=== PATIENT | male | born 1955 | race Caucasian/White ===

== ENCOUNTER 2017-08-10 11:21 | Observation (INO) | payer BC ==
[2017-08-10] MEDS ORDERED: Sodium Chloride 0.9% 10 ML FLUSH Syringe IV PRN (12:48)
[2017-08-10] MEDS ORDERED: TYLENOL 325 MG PO PRN (12:50)
[2017-08-10] MEDS ORDERED: NON-FORMULARY ITEM (Dulaglutide [Trulicity] 1.5 ml) SQ SCH (13:30)
[2017-08-10 14:09] LABS: ANION GAP 14.8 MEQ/L (5-15); BILIRUBIN,TOTAL 0.3 mg/dL (0.2-1.0); Calcium 8.7 mg/dL (8.5-10.1); Carbon Dioxide 22.8 mEq/L (21-32); Creatinine 1 1.53 mg/dl (0.55-1.30); Potassium 3.9 mEq/L (3.5-5.1)
--- NOTE | 2017-08-10 14:30 | XRAY ---
Indication: Status post left thoracentesis. Comparison: Taken earlier in the day. Portable chest obtained in expiration demonstrates marked clearing of left effusion with residual left base atelectasis and tiny effusion. No pneumothorax. Remaining heart and lungs unremarkable.
[2017-08-10] MEDS: Sodium Chloride 0.9% 10 ML FLUSH Syringe IV SCH ×2 (15:27→21:05)
[2017-08-10] MEDS ORDERED: INSULIN LISPRO 30 UNIT SQ SCH (16:30)
[2017-08-10] MEDS ORDERED: APRESOLINE 20 MG/ML INJ IV PRN (16:35)
[2017-08-10] MEDS: NovoLOG Insulin SQ SCH (17:03)
[2017-08-10] MEDS: Toprol Xl 50 MG PO SCH (21:02)
[2017-08-10] MEDS: ZOCOR 20MG PO SCH (21:03)
[2017-08-10] MEDS ORDERED: NON-FORMULARY ITEM (Atorvastatin Calcium 40 MG) PO SCH (22:00)
[2017-08-11 06:52] LABS: BF Color Pale Yellow
[2017-08-11 09:19] LABS: BF Mononuclear 100 %
[2017-08-11] MEDS: NovoLOG Insulin SQ SCH ×3 (09:28→17:06)
[2017-08-11] MEDS: Lantus Insulin SQ SCH (09:28)
[2017-08-11] MEDS: Toprol Xl 50 MG PO SCH ×2 (09:29→22:13)
[2017-08-11] MEDS: SYNTHROID 50 MCG PO SCH (09:29)
[2017-08-11] MEDS: LASIX 20 MG PO SCH (09:29)
--- NOTE | 2017-08-11 09:29 | XRAY ---
Indication: Follow-up effusion. Status post left thoracentesis one day earlier. Comparison: One day earlier. PA/lateral chest again demonstrates small residual left effusion with adjacent atelectasis. No pneumothorax. Remaining heart and right lung normal.
[2017-08-11] MEDS: NON-FORMULARY ITEM (Chlorthalidone [Chlorthalidone] 25 MG) PO SCH (09:30)
[2017-08-11] MEDS: NORVASC 5 MG PO SCH (09:30)
[2017-08-11] MEDS: Levofloxacin 500 MG Tablet PO SCH (09:31)
[2017-08-11] MEDS: Sodium Chloride 0.9% 10 ML FLUSH Syringe IV SCH ×3 (09:32→22:13)
[2017-08-11] MEDS ORDERED: NON-FORMULARY ITEM (Insulin Detemir [Levemir] 40 UNIT) SQ SCH (10:00)
[2017-08-11] MEDS ORDERED: NON-FORMULARY ITEM (Amlodipine Besylate 10 Mg [Norvasc 10 Mg] 10 MG) PO SCH (10:00)
--- NOTE | 2017-08-11 14:51 | HP ---
HISTORY OF PRESENT ILLNESS: A 61 year-old man who presented to the clinic on 08/10/2017. He complained of having a cough that would not go away stating that sometimes he would cough to the point that he felt like he was going to throw up. He has been taking Coricidin HBP since July 2017 after I had seen him for a viral upper respiratory tract infection on 07/14/2017. He reports that he sometimes coughs up white phlegm. He is not smoking. He quit smoking 30 years ago. His cough is worse at night and he reports that sometimes he has to sit up in a chair. He does not have any history of asthma and emphysema and does not use any inhalers at home. He also reports that sometimes the cough is worse with talking. The patient was sent over to the hospital for a STAT chest x-ray and CBC. The chest x-ray had revealed a large left pleural effusion. On his physical exam in the clinic I also noted that he had decreased breath sounds in the left lung field. The patient was called and was agreeable to direct admission. The radiologist was consulted for ultrasound guided thoracentesis. The patient does work at the [employer] but states he does not have much contact with the offenders as he is usually working outside. This a.m. the patient states that his breathing was much better. He still has cough productive of some white sputum but overall he is feeling better. Of note, the radiologist took off 2.1 liter of what he called transudative fluid from his chest. REVIEW OF SYSTEMS: No fever. He has had post-tussive emesis otherwise no vomiting, no diarrhea. The cough was worse with lying down and worse with talking. No abdominal pain. Trace lower extremity edema. No chest pain. PAST MEDICAL HISTORY: Diabetes mellitus type 2, hyperlipidemia, hypertension, history of edema. He had an echo in 2012 with ejection fraction of 60%. History of obstructive sleep apnea which he wears CPAP for at home. The patient always declined screening for colon cancer. PAST SURGICAL HISTORY: Orthopedic surgery for left leg fracture and orthopedic surgery for left wrist fracture. MEDICATIONS: Please see the home medication reconciliation list. ALLERGIES: NKDA. SOCIAL HISTORY: He used to smoke and quit around 1987. He smoked for approximately 15 years. No alcohol use. The patient lives alone. He works at the [employer] in [place]. FAMILY HISTORY: His father had heart disease and his mother had heart disease. His mother also had diabetes. PHYSICAL EXAMINATION: VITAL SIGNS: Temperature current 97.8F, temperature max 99.1F, heart rate 78 to 90, respiratory rate 18 to 20, blood pressure 138 to 184 over 73 to 85, weight 127.7 kg. Oxygen saturation 92 to 97% on room air currently 97% on room air. GENERAL: The patient is sitting up a pleasant talkative man in no acute distress. CVS: He has a regular rate and rhythm. No murmurs, gallops or rubs. CHEST: Decreased breath sounds at left base. Otherwise lungs are clear to auscultation. No crackles or wheezes. ABDOMEN: Soft, nontender, nondistended with normal bowel sounds. EXTREMITIES: +2 edema to the mid shins bilaterally. SKIN: Warm, dry and intact. LABORATORY DATA AND TESTS: Glucose 212, creatinine 1.5, BUN 25. BNP 254. White blood cell count 10.6 with 70% granulocytes, 18% lymphocytes, 8% monocytes. Chest x-ray on admission new large left lung consolidation occupying 75% of hemithorax. X-ray this a.m. small residual left effusion with adjacent atelectasis. No pneumothorax. Please see the radiologist report for full dictation on both x-rays. EKG sinus rhythm. He did have prolongation of his QRS. ASSESSMENT AND PLAN: 1) LEFT PLEURAL EFFUSION. Again 2.1 liters of fluid was removed. It was sent for protein, LDH, gram stain, culture, cytology, pH, glucose, cell count and TB culture. The LDH, cell count, pH, glucose and protein were back. The fluid does meet right criteria as the pleural LDH is greater than 0.67 times the upper limits of normal for the serum LDH so with exudative the rest of those studies are pending. I asked veneer manufacturer, Dr. Anthony Morrison, to see the patient as I am unsure of the exact etiology. I am also checking sputum culture, go ahead and start him on levofloxacin as his white blood cell count was mildly elevated although he has been afebrile. 2) DIABETES MELLITUS TYPE 2: His hemoglobin A1C was 6.7 on 06/09/2017. I continued his home doses of his insulin. 3) HYPERTENSION: I continued his home antihypertensive and added hydralazine as needed PRN. His blood pressure has always been hard to control. 4) DEEP VENOUS THROMBOSIS PROPHYLAXIS: Use SCD and ARNOLD hose.
--- NOTE | 2017-08-11 16:10 | XRAY ---
Indication: Pleural effusion. Status post left thoracentesis one day earlier. Multiple contiguous axial images obtained through the chest without contrast as ordered. Comparison: None There is moderate left effusion occupying approximately 33% of the left hemithorax with minimal left lower lobe compressive atelectasis. A few left lung calcified granulomas and minimal inferior lingular atelectasis/scarring. No pneumothorax. Right lung clear. Heart is not enlarged. No pericardial effusion. Aorta is normal in course and caliber. A few small mediastinal and distal paraesophageal noncalcified nodes. No pathologic mediastinal lymphadenopathy. Bony thorax intact with mild flowing osteophytes throughout the spine. Limited upper abdomen demonstrates 3 cm left adrenal benign adenoma. Impression: 1. Left effusion/atelectasis as detailed. 2. Incidental evidence for old granulomatous disease and left adrenal adenoma. CTDI 17.76
[2017-08-11] MEDS: ZOCOR 20MG PO SCH (22:13)
[2017-08-12 06:26] LABS: Hematocrit 37.2 % (42-50); Hemoglobin 11.6 gm/dl (12.5-18.0); Mean Cell Volume 84.9 fl (78-100); Mean Corpuscular Hgb Concent. 31.2 g/dl (32-36); Mean Platelet Volume 10.4 fl (6-9.5); Platelet Count 418 K/mm3 (150-450); Red Blood Count 4.38 M/mm3 (4.1-5.6); Red Cell Distribution Width 14.5 % (11.5-14.0); White Blood Count 9.1 K/mm3 (4.0-10.5)
[2017-08-12 06:44] LABS: Mean Corpuscular Hemoglobin 26.4 pg (26-32)
[2017-08-12] MEDS: Sodium Chloride 0.9% 10 ML FLUSH Syringe IV SCH (06:55)
[2017-08-12 07:15] LABS: ALKALINE PHOSPHATASE 66 U/L (46-116); ANION GAP 13.8 MEQ/L (5-15); BLOOD UREA NITROGEN 24 mg/dL (9-20); CHLORIDE 106 mEq/L (98-107); Calcium 8.8 mg/dL (8.5-10.1); EST GLOMERULAR FILTRATION RATE > 60 ML/MIN; Glucose 176 MG/DL (70-110); MAGNESIUM 1.9 mg/dL (1.8-2.4); NT PRO BNP 209 pg/ml (0-125); Potassium 4.2 mEq/L (3.5-5.1); SGOT/AST 20 U/L (15-37); SGPT/ALT 15 U/L (12-78); SODIUM 139 mEq/L (136-145); Total Protein 6.6 gm/dL (6.4-8.2)
[2017-08-12 07:18] VITALS: O2SAT 97
[2017-08-12] MEDS ORDERED: NovoLOG Insulin SQ SCH (08:14)
[2017-08-12] MEDS: NovoLOG Insulin SQ SCH (08:37)
[2017-08-12] MEDS: Lantus Insulin SQ SCH (08:37)
[2017-08-12] MEDS: LASIX 20 MG PO SCH (08:40)
[2017-08-12] MEDS: Levofloxacin 500 MG Tablet PO SCH (08:40)
[2017-08-12] MEDS: SYNTHROID 50 MCG PO SCH (08:40)
[2017-08-12] MEDS: NORVASC 5 MG PO SCH (08:40)
[2017-08-12] MEDS: Toprol Xl 50 MG PO SCH (08:40)
[2017-08-12] MEDS: MEDICATION INTERVENTION MC SCH ×2 (08:41→08:43)
[2017-08-12] MEDS: NON-FORMULARY ITEM (Chlorthalidone [Chlorthalidone] 25 MG) PO SCH (08:42)
--- NOTE | 2017-08-12 09:21 | PCM.NOTE ---
Date and Time: 08/12/17914 Subjective Assessment: Patient reports that he continues to have a cough especially when he talks but improved. He reports Dr. Morrison said he would check back with him today and that he might possibly clear him to be released on antibiotics. He reports his diet is different here as he is eating cooked food and not just grabbing what is available and agrees that this is probably why his blood glucose went low yesterday. I discussed that is why I cut back on his regular insulin with his meals from 30 units to 10 units and will most likely send him home on 20 units with his meals and see how he does with this at home. - Review of Systems Constitutional: No Symptoms Eyes: No Symptoms Ears, Nose, & Throat: No Symptoms Respiratory: Cough, Short Of Breath Cardiac: No Symptoms Abdominal/Gastrointestinal: No Symptoms Genitourinary Symptoms: No Symptoms Musculoskeletal: No Symptoms Skin: Other (mild swelling of his legs) Objective Exam General Appearance: no apparent distress, alert, other (smiling, talkative) Neurologic Exam: alert, cooperative, normal mood/affect Skin Exam: normal color, warm, dry Respiratory Exam: other (diminshed breath sounds on the left, normal on the right, cough with deep breaths) Cardiovascular Exam: regular rate/rhythm, normal heart sounds, No murmur, No friction rub, No gallop Extremity Exam: other (+1 edema to mid shins bilat, no c/c) OBJECTIVE DATA Vital Signs: Vital Signs - 24 hr Temp Pulse Resp BP Pulse Ox 08/12/17 07:17 97.6 F 80 20 155/78 97 08/12/17 04:25 98.3 F 74 22 176/85 95 08/12/17 00:00 98.3 F 76 22 156/70 95 08/11/17 20:00 97.8 F 87 22 169/78 96 08/11/17 19:45 75 20 96 08/11/17 16:31 97 08/11/17 15:22 97.9 F 90 22 148/74 96 08/11/17 12:31 97.8 F 84 22 138/68 97 Pain Assessment - Last Documented Pain Intensity 2 Pain Scale Used 0-10 Pain Scale Intake and Output: Intake & Output 08/10/17 08/11/17 08/12/17 08/13/17 06:59 06:59 06:59 06:59 Intake Total 980 2200 360 Output Total 1000 Balance 980 1200 360 Weight 127.7 kg Lab Results: Accuchecks Date 08/12/17 Date 08/11/17 Date 08/11/17 Date 08/11/17 Date 08/11/17 Time 07:00 Time 14:35 Time 15:58 Time 15:19 Time 11:30 Accucheck Value: 162 Accucheck Value: 215 Accucheck Value: 144 Accucheck Value: 56 Accucheck Value: 53 Accucheck Value: 214 Lab Results-Last 24 Hours 08/10/17 08/12/17 08/12/17 Range/Units 14:15 05:30 05:30 WBC 9.1 (4.0-10.5) K/mm3 RBC 4.38 (4.1-5.6) M/mm3 Hgb 11.6 L (12.5-18.0) gm/dl Hct 37.2 L (42-50) % MCV 84.9 (78-100) fl MCH 26.4 (26-32) pg MCHC 31.2 L (32-36) g/dl RDW 14.5 H (11.5-14.0) % Plt Count 418 (150-450) K/mm3 MPV 10.4 H (6-9.5) fl Sodium 139 (136-145) mEq/L Potassium 4.2 (3.5-5.1) mEq/L Chloride 106 (98-107) mEq/L Carbon Dioxide 23.0 (21-32) mEq/L Anion Gap 13.8 (5-15) MEQ/L BUN 24 H (9-20) mg/dL Creatinine 1.30 (0.55-1.30) mg/dl Estimated GFR > 60 ML/MIN Glucose 176 H (70-110) MG/DL Calcium 8.8 (8.5-10.1) mg/dL Magnesium 1.9 (1.8-2.4) mg/dL Total Bilirubin 0.30 (0.2-1.0) mg/dL AST 20 (15-37) U/L ALT 15 (12-78) U/L Alkaline Phosphatase 66 (46-116) U/L NT-Pro-B Natriuret Pep 209 H (0-125) pg/ml Serum Total Protein 6.6 (6.4-8.2) gm/dL Albumin 2.0 L (3.4-5.0) g/dL Fluid Mononuclear Cell 100 % Fl Polymorphonucl Cell 0 % Radiology Exams: Radiology Procedures Category Date Time Status CHEST 1 VIEW (PORTABLE) Urgent Exams 08/10/17 14:13 Completed CHEST 2 VIEWS (PA AND LAT) Routine Exams 08/11/17 09:15 Completed CHEST WITHOUT CONTRAST [CT] Routine Exams 08/11/17 15:12 Completed THORACENTESIS [US] Routine Exams 08/10/17 13:00 Taken Assessment/Plan (1) Pleural effusion, left Current Visit: No Status: Acute Assessment & Plan: Studies are still pending. CT revealed moderate left pleural effusion. Continue levofloxacin and Dr. Morrison, bottle machine operator, is following. Code(s): J90 - PLEURAL EFFUSION, NOT ELSEWHERE CLASSIFIED (2) Diabetes mellitus Current Visit: No Status: Chronic Qualifiers: Diabetes mellitus type: type 2 Diabetes mellitus complication status: without complication Assessment & Plan: Low blood glucose yesterday evening. I changed short acting insulin while here in the hospital from 30 units with meals to 10 units with meals. Continue lantus. Code(s): E11.9 - TYPE 2 DIABETES MELLITUS WITHOUT COMPLICATIONS (3) Essential hypertension Current Visit: Yes Status: Acute Assessment & Plan: Continue home medications and also has hydralazine ordered prn if needed. Code(s): I10 - ESSENTIAL (PRIMARY) HYPERTENSION
--- NOTE | 2017-08-12 11:43 | XRAY ---
Indication: Left pleural effusion. Informed consent obtained. Initial sonographic imaging of the left lower back was performed for localization. Skin was prepped and draped in sterile fashion. 1% lidocaine plain used for local anesthesia. Tiny skin incision made. Then a 5 [employer] thoracentesis catheter with introducer needle was inserted into the left hemithorax. Small flash of effusion seen in the syringe at which point the outer catheter was advanced and the inner needle removed. Catheter was then connected to a Vacutainer. Approximately 2.1 L of yellow tinged transudative fluid was aspirated. Fluid was sent to laboratory for analysis. Repeat sonogram demonstrates marked improvement with tiny trace effusion present. Catheter was removed. Hemostasis achieved using digital pressure over the puncture site. Small Band-Aid applied. Postoperative instructions and orders given. Impression: Technically successful left chest thoracentesis using ultrasound guidance for diagnostic and therapeutic purpose. 2.1 L aspirated. No immediate complications.
[2017-08-12 12:13] VITALS: BP 158/80; PULSE 89
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
--- NOTE | 2017-08-12 15:02 | PROG NOTE ---
CONSULT DATE: 08/12/2017 HISTORY: I evaluated the patient this morning. Awake, comfortable. The said no new complaints. He wants to go home. PHYSICAL EXAMINATION: Vital signs noted. HEENT: Normocephalic. Oral exam again small oropharynx. NECK: Supple. CVS: First and second heart sounds are normal, regular, rhythmic. RESPIRATORY: Shows diminished breath sounds at left lung base. ABDOMEN: Obese. EXTREMITIES: 2+ leg edema is present. LABORATORY DATA AND TESTS: CT chest reviewed. Echocardiogram from Dr. Ocasio reviewed. ASSESSMENT: This is a 61 year old male admitted with what appears to be: 1) Community acquired pneumonia with left sided exudative pleural effusion and has undergone thoracentesis. A small amount of residual fluid is still present. 2) Obstructive sleep apnea. 3) Hypertension. 4) Diabetes mellitus. 5) Total body water excess. 6) Renal insufficiency, improving. RECOMMENDATIONS: The patient wishes to go home. He has remained afebrile with stable vital signs and labs. I believe he can be discharged home with outpatient follow up. I have advised him to stay off work until re-evaluated and cleared by me. I will discharge the patient home on oral antibiotics. I will follow him up in office next week with follow up chest x-ray. I explained to patient that paraopneumonic effusion may improve with antibiotic therapy. However there is also a small likelihood that the effusion may worsen or fail to resolve in which case possibly a chest tube/decortication may be required. Continue use of CPAP. Continue other supportive care. Advised to call if any of his acute symptoms worsen.
== END 2017-08-12 14:15 | disposition home or self-care (01) ==
LOC: MED SURG 12:04
PROVIDERS: ADMIT Internal Medicine; ATTEND Internal Medicine
DX: J90 Pleural effusion, not elsewhere classified (principal); J98.11 Atelectasis; E11.9 Type 2 diabetes mellitus without complications; I10 Essential (primary) hypertension; Z87.891 Personal history of nicotine dependence; E78.5 Hyperlipidemia, unspecified; G47.33 Obstructive sleep apnea (adult) (pediatric); M79.89 Other specified soft tissue disorders; J18.9 Pneumonia, unspecified organism; N28.9 Disorder of kidney and ureter, unspecified; R63.5 Abnormal weight gain
CPT/HCPCS: 32557; 36415; 71045; 71046; 71250; 80053; 82945; 82962; 83036; 83615; 83735; 83880; 83986; 84157; 85025; 85027; 87015; 87040; 87070; 87075; 87116; 87206; 88305; 88309; 89050; 89051; 93005; 94760; G0378; A9270-GY

== ENCOUNTER 2020-07-15 13:32 | Inpatient (IN) | payer BC ==
[2020-07-15] MEDS ORDERED: VENTOLIN COMMON CANISTER IH PRN (15:42)
[2020-07-15] MEDS ORDERED: REMDESIVIR 200 MG in Sodium Chloride 0.9% 250 ML 250 ML IV SCH (16:00)
[2020-07-15] MEDS: Decadron 4 MG INJ IV SCH ×2 (16:30→22:48)
[2020-07-15] MEDS: ENOXAPARIN SODIUM SQ SCH (16:30)
[2020-07-15] MEDS: Sodium Chloride 0.9% 500 ML 500 ML IV SCH (16:31)
[2020-07-15] MEDS: Tussionex Pennkinetic Susp PO PRN (16:46)
[2020-07-15] MEDS ORDERED: NON-FORMULARY ITEM (Atorvastatin Calcium 40 MG) PO SCH (22:00)
[2020-07-15] MEDS: ZOCOR 20MG PO SCH (22:49)
[2020-07-15] MEDS: Toprol Xl 50 MG PO SCH (23:36)
[2020-07-16 06:13] LABS: Hematocrit 33.9 % (42-50); Hemoglobin 10.4 gm/dl (12.5-18.0); Mean Cell Volume 89.7 fl (78-100); Mean Corpuscular Hemoglobin 27.5 pg (26-32); Mean Corpuscular Hgb Concent. 30.7 g/dl (32-36); Mean Platelet Volume 11.3 fl (7.5-11.0); Platelet Count 287 K/mm3 (150-450); Red Blood Count 3.78 M/mm3 (4.1-5.6); Red Cell Distribution Width 14.9 % (11.5-14.0)
[2020-07-16 06:18] LABS: ALBUMIN 3.3 g/dL (3.5-5.0); ANION GAP 15.6 MEQ/L (5-15); BILIRUBIN,TOTAL 0.5 mg/dL (0.2-1.3); Calcium 8.2 mg/dL (8.4-10.2); Creatinine 1 2.66 mg/dL (0.66-1.25); Potassium 4.8 mmol/L (3.5-5.1)
[2020-07-16] MEDS: HUMALOG SQ PRN ×4 (08:41→21:10)
--- NOTE | 2020-07-16 09:28 | HP ---
CHIEF COMPLAINT: Frequent cough. HISTORY OF PRESENT ILLNESS: The patient is a 64 year old white male who was actually in our physical therapy department when he was noticed to be coughing hard. He alerted physical therapist and did an O2 saturation that was 85% and sent him over the respiratory clinic where nurse practitioner called me. Ordered some orders and found to be COVID positive. Chest x-ray showing COVID pneumonia and D-dimer was markedly elevated. MEDICATIONS: Norvasc 10 q.d., Lipitor 20 q.d., chlorthalidone 25 q.d., Lasix 20 q.d., Synthroid 50 mcg q.d., metoprolol 150 b.i.d. Vibramycin 100 q.d. started just recently. ALLERGIES: NKDA. PAST MEDICAL HISTORY: Hypertension, diabetes mellitus for 20 years, hypothyroidism. The patient has arthritis in the knee which was drained some time recently and had a scope. He is here for physical therapy. The patient had pneumonia several years ago and had a large pleural effusion that required drainage and treatment for that. He does not know what the etiology of it was. He quit smoking at that time. He states his A1C is usually good but he does not know what it is. The patient also had some renal insufficiency. PAST SURGICAL HISTORY: The patient did also have a heart cath by Dr. Ocasio which he stated was normal. He also denies any retinopathy. SOCIAL HISTORY: I believe he works at the [employer]. 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 He is and lives with daughter. Nonsmoker, nondrinker. REVIEW OF SYSTEMS: Review of COVID symptoms: Taste still has it. Cough frequent, nonproductive. Short of breath at rest. CVS: No chest pain. ABDOMEN: No nausea or vomiting. Eats okay. EXTREMITIES: No specific pain except the right knee which has been scoped recently. PHYSICAL EXAMINATION: The patient is pleasant, not in distress, large man appropriately aged. HEENT: Pupils equal and reactive to light. NECK: Supple without adenopathy. CHEST: Few wheezes at bases. CVS: Distant, regular. ABDOMEN: Obese. No tenderness or organomegaly. EXTREMITIES: Decreased pulses. Decreased hair growth on the legs. No cyanosis. No open areas. IMPRESSION: The patient has bilateral COVID pneumonia with elevated D-dimer not on the chart but it was quite elevated. His O2 saturation was 85% and required five liters of nasal cannula oxygen to get it up in the low 90's. PLAN: The patient is a candidate for Remdesivir, of course oxygen and Decadron and maybe Albuterol or inhalers, Ativan for anxiety, Tussionex possibly for cough. PROGNOSIS: Guarded.
[2020-07-16] MEDS ORDERED: NON-FORMULARY ITEM (Amlodipine Besylate 10 Mg [Norvasc 10 Mg] 10 MG) PO SCH (10:00)
[2020-07-16] MEDS: Decadron 4 MG INJ IV SCH ×2 (10:03→21:09)
[2020-07-16] MEDS: NON-FORMULARY ITEM (Chlorthalidone [Chlorthalidone] 0 MG) PO SCH (10:07)
[2020-07-16] MEDS: ENOXAPARIN SODIUM SQ SCH (10:08)
[2020-07-16] MEDS: LASIX 20 MG PO SCH (10:09)
[2020-07-16] MEDS: SYNTHROID 50 MCG PO SCH (10:09)
[2020-07-16] MEDS: Toprol Xl 50 MG PO SCH ×2 (10:10→21:10)
[2020-07-16] MEDS: NORVASC 5 MG PO SCH (10:10)
[2020-07-16] MEDS: Sodium Chloride 0.9% 500 ML 500 ML IV SCH (14:29)
[2020-07-16] MEDS: REMDESIVIR 100 MG in Sodium Chloride 0.9% 100 ML IVPB 100 ML IV SCH (16:21)
[2020-07-16] MEDS: ZOCOR 20MG PO SCH (21:09)
[2020-07-16] MEDS: Ativan 1 MG PO PRN (21:09)
[2020-07-16] MEDS: Tussionex Pennkinetic Susp PO PRN (21:09)
[2020-07-17] MEDS: HUMALOG SQ PRN ×4 (07:27→22:56)
[2020-07-17] MEDS: ENOXAPARIN SODIUM SQ SCH (09:09)
[2020-07-17] MEDS: Decadron 4 MG INJ IV SCH ×2 (09:09→22:55)
[2020-07-17] MEDS: SYNTHROID 50 MCG PO SCH (09:11)
[2020-07-17] MEDS: NORVASC 5 MG PO SCH (09:11)
[2020-07-17] MEDS: LASIX 20 MG PO SCH (09:11)
[2020-07-17] MEDS: NON-FORMULARY ITEM (Chlorthalidone [Chlorthalidone] 0 MG) PO SCH (09:45)
--- NOTE | 2020-07-17 11:02 | PROG NOTE ---
CHIEF COMPLAINT: Cough. HISTORY: The patient is a very large, 64 year old white male who has COVID pneumonia. He feels better. His temperature is down. Still coughing quite a bit. His x-ray showed mid lung field groundglass configuration. His D-dimer today is 1,061. Due to his weight and obesity high risk for deep venous thrombosis he is anticoagulated. He is on metoprolol however his blood pressure has been low and I think we will stop the metoprolol. His chest has a few crackles. His heart sounds are regular. He is much improved. However I really think he needs at least three doses of Remdesivir and be anticoagulated for a longer period of time. I told him maybe Wednesday afternoon after Remdesivir and will send him home on oxygen at 2 liters. PROGNOSIS: Improved despite being a high risk.
[2020-07-17] MEDS: REMDESIVIR 100 MG in Sodium Chloride 0.9% 100 ML IVPB 100 ML IV SCH (15:48)
[2020-07-17] MEDS ORDERED: Sodium Chloride 0.9% 1000 ML 1,000 ML ONE (22:49)
[2020-07-17] MEDS: Lantus Insulin SQ SCH (22:55)
[2020-07-17] MEDS: ZOCOR 20MG PO SCH (22:55)
[2020-07-17] MEDS: Sodium Chloride 0.9% 1000 ML 1,000 ML IV SCH (23:00)
[2020-07-17] MEDS: Ativan 1 MG PO PRN (23:31)
[2020-07-17] MEDS: Tussionex Pennkinetic Susp PO PRN (23:31)
[2020-07-18] MEDS: HUMALOG SQ PRN ×5 (01:50→22:06)
[2020-07-18] MEDS: Sodium Chloride 0.9% 1000 ML 1,000 ML IV SCH ×3 (04:10→18:18)
[2020-07-18] MEDS ORDERED: Sodium Chloride 0.9% 1000 ML 1,000 ML ONE (04:10)
[2020-07-18] MEDS: NON-FORMULARY ITEM (Chlorthalidone [Chlorthalidone] 0 MG) PO SCH (08:00)
[2020-07-18] MEDS: LASIX 20 MG PO SCH (09:35)
[2020-07-18] MEDS: NORVASC 5 MG PO SCH (09:37)
[2020-07-18] MEDS: ENOXAPARIN SODIUM SQ SCH (09:37)
[2020-07-18] MEDS: SYNTHROID 50 MCG PO SCH (09:37)
[2020-07-18] MEDS: Decadron 4 MG INJ IV SCH ×2 (09:38→14:49)
[2020-07-18 09:48] LABS: ALBUMIN 3.4 g/dL (3.5-5.0); ANION GAP 15.2 MEQ/L (5-15); BILIRUBIN,TOTAL 0.3 mg/dL (0.2-1.3); Calcium 8.3 mg/dL (8.4-10.2); Creatinine 1 2.05 mg/dL (0.66-1.25); EST GLOMERULAR FILTRATION RATE 35.1 ML/MIN; Potassium 4.4 mmol/L (3.5-5.1); Total Protein 7.2 g/dL (6.3-8.2)
[2020-07-18] MEDS ORDERED: NON-FORMULARY ITEM PO SCH (10:00)
[2020-07-18] MEDS: REMDESIVIR 100 MG in Sodium Chloride 0.9% 100 ML IVPB 100 ML IV SCH (15:29)
[2020-07-18] MEDS: Sodium Chloride 0.9% 500 ML 500 ML IV SCH (21:13)
[2020-07-18] MEDS: Lantus Insulin SQ SCH (22:05)
[2020-07-18] MEDS: ZOCOR 20MG PO SCH (22:05)
[2020-07-18] MEDS: Tussionex Pennkinetic Susp PO PRN (22:22)
[2020-07-19] MEDS: Sodium Chloride 0.9% 1000 ML 1,000 ML IV SCH (01:11)
[2020-07-19 05:07] LABS: Hematocrit 30.9 % (42-50); Hemoglobin 9.6 gm/dl (12.5-18.0); Mean Cell Volume 87.8 fl (78-100); Mean Corpuscular Hemoglobin 27.3 pg (26-32); Mean Corpuscular Hgb Concent. 31.1 g/dl (32-36); Mean Platelet Volume 10.7 fl (7.5-11.0); Platelet Count 320 K/mm3 (150-450); Red Blood Count 3.52 M/mm3 (4.1-5.6); Red Cell Distribution Width 14.4 % (11.5-14.0); White Blood Count 7.4 K/mm3 (4.0-10.5)
[2020-07-19 05:42] LABS: ALBUMIN 2.7 g/dL (3.5-5.0); ANION GAP 11.3 MEQ/L (5-15); BILIRUBIN,TOTAL 0.4 mg/dL (0.2-1.3); Calcium 7.9 mg/dL (8.4-10.2); Creatinine 1 1.69 mg/dL (0.66-1.25); EST GLOMERULAR FILTRATION RATE 43.9 ML/MIN; Potassium 4.4 mmol/L (3.5-5.1); Total Protein 5.9 g/dL (6.3-8.2)
[2020-07-19 07:59] VITALS: BP 155/78; PULSE 69; O2SAT 92
[2020-07-19] MEDS: HUMALOG SQ PRN (08:14)
--- NOTE | 2020-07-19 11:40 | DS ---
ADMISSION DIAGNOSES: 1) COVID pneumonia. 2) Diabetes mellitus. 3) Obesity. 4) Hypertension. DISCHARGE DIAGNOSES: 1) COVID PNEUMONIA. 2) DIABETES MELLITUS. 3) OBESITY. 4) HYPERTENSION. HISTORY: A 64 year old white male was actually in physical therapy for I think fracture treatment on his leg. That had been going very well. He was noticed to short of breath and O2 saturation was 85%. He was sent for a COVID test which was positive. Chest x-ray showed bilateral COVID pneumonia and he was admitted. He said that he noted that he had been short of breath for four days. He had pneumonia in the distant past with a large effusion which required drainage and treatment but that was not lately. He quit smoking at that time. He works at the [employer]. He has mild renal insufficiency and diabetes. He got a heart cath by Dr. Ocasio which was normal. He denies retinopathy. HOSPITAL COURSE: The patient never was short of breath. He required 2 liters of oxygen for a while and on the last day with no oxygen. His hemoglobin 9.7, white count 7.4 and D-dimer was 1,500 on 07/19/2020. He was pretty well asymptomatic. He is eating well, feeling okay except fatigue, not short of breath. Coughing some. Blood sugars have been elevated 625 down to 300 this was probably made worse by the Decadron of course. He is back to eating. He can check his blood sugars and adjust his insulin. He feels well and will be discharged home on no oxygen. Prednisone 20 x5, 10 x5. Return to work on 08/03/2020. Call if he gets short of breath or any other symptoms. Metoprolol was discontinued due to low blood pressure. PROGNOSIS: Fair.
== END 2020-07-19 09:45 | disposition home or self-care (01) | DRG 177 ==
LOC: MED SURG 13:32 → OBSVTOIN 17:15
PROVIDERS: ADMIT Family Medicine; ATTEND Family Medicine
DX: U07.1 COVID-19 (principal); J12.89 Other viral pneumonia; E11.9 Type 2 diabetes mellitus without complications; I10 Essential (primary) hypertension; E66.9 Obesity, unspecified; R79.1 Abnormal coagulation profile; Z79.899 Other long term (current) drug therapy; E03.9 Hypothyroidism, unspecified
CPT/HCPCS: 36415; 71045; 80053; 82947; 83880; 85025; 85027; 85379; 93268; 94762; J1100; J1650; J1817; U0003; A9270-GY

== ENCOUNTER 2020-08-06 21:51 | Emergency (ER) | payer BC ==
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
[2020-08-06] MEDS ORDERED: Sodium Chloride 0.9% 1000 ML 1,000 ML IV SCH (22:15)
[2020-08-06] MEDS ORDERED: Decadron 4 MG INJ IV ONE (22:23)
[2020-08-06] MEDS ORDERED: Decadron 4 MG INJ ONE (22:33)
[2020-08-06] MEDS ORDERED: Sodium Chloride 0.9% 1000 ML 1,000 ML ONE (22:33)
[2020-08-06] MEDS ORDERED: HYDROCODONE-ACETAMIN 2.5-108/5 ML SOLUTION PO STA (22:54)
[2020-08-06 23:02] LABS: Absolute Neutrophil Ct (ANC) 5.85 (1.4-6.9); BASOPHIL % 0.5 % (0.0-0.4); Basophil (Absolute #) 0.04 (0-0.4); Eosinophil (Absolute #) 0.52 (0-0.5); Hematocrit 37.9 % (42-50); Hemoglobin 11.7 gm/dl (12.5-18.0); Lymphocytes % 17.3 % (24.0-44.0); Mean Cell Volume 89.6 fl (78-100); Mean Corpuscular Hemoglobin 27.7 pg (26-32); Mean Corpuscular Hgb Concent. 30.9 g/dl (32-36); Monocyte (Absolute #) 0.75 (0.0-1.3); Monocytes % 8.7 % (0.0-12.0); Neutrophil % 67.5 % (36.0-66.0); Platelet Count 369 K/mm3 (150-450); Red Blood Count 4.23 M/mm3 (4.1-5.6); Red Cell Distribution Width 17.1 % (11.5-14.0); White Blood Count 8.7 K/mm3 (4.0-10.5)
[2020-08-06] MEDS ORDERED: HYDROCODONE-ACETAMIN 2.5-108/5 ML SOLUTION ONE (23:04)
[2020-08-06 23:05] LABS: ALBUMIN 3.7 g/dL (3.5-5.0); ANION GAP 12.3 MEQ/L (5-15); BILIRUBIN,TOTAL 0.5 mg/dL (0.2-1.3); Calcium 9.4 mg/dL (8.4-10.2); Creatinine 1 1.9 mg/dL (0.66-1.25); EST GLOMERULAR FILTRATION RATE 38.4 ML/MIN; Potassium 4.9 mmol/L (3.5-5.1); Total Protein 7.4 g/dL (6.3-8.2)
[2020-08-06 23:26] LABS: INFLUENZA A NEGATIVE (NEGATIVE); INFLUENZA B NEGATIVE (NEGATIVE)
[2020-08-07] MEDS ORDERED: Lasix 40 MG/4 ML IV ONE (00:20)
[2020-08-07] MEDS ORDERED: Lasix 40 MG/4 ML ONE (00:54)
[2020-08-07 01:21] VITALS: BP 164/86; PULSE 67; O2SAT 97
--- NOTE | 2020-08-07 09:08 | XRAY ---
Indication: Short of breath. Recent positive Covid 19. Comparison: July 15, 2020. Portable chest demonstrates minimally worsening diffuse bilateral airspace disease again left greater than right without consolidation/large effusion. New borderline cardiomegaly. Remaining chest unremarkable.
== END 2020-08-07 01:02 | disposition short-term general hospital (02) ==
LOC: ED 21:51
DX: R06.02 Shortness of breath (principal); I21.4 Non-ST elevation (NSTEMI) myocardial infarction; I50.9 Heart failure, unspecified; N19 Unspecified kidney failure; R79.89 Other specified abnormal findings of blood chemistry; I10 Essential (primary) hypertension; I25.10 Atherosclerotic heart disease of native coronary artery without angina pectoris; U07.1 COVID-19; E11.9 Type 2 diabetes mellitus without complications; E03.9 Hypothyroidism, unspecified; J44.9 Chronic obstructive pulmonary disease, unspecified; Z79.899 Other long term (current) drug therapy
CPT/HCPCS: 36000; 36415; 71045; 80053; 83880; 84484; 85025; 85379; 86308; 87040; 87400; 87651; 93005; 94760; 96374; 96375; 99285; 99291; J1100; J1940; A9270-GY

== ENCOUNTER 2025-04-17 14:34 | Observation (INO) | payer MEDICARE ==
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
--- NOTE | 2025-04-17 16:48 | XRAY ---
Indication: Fall injury. Comparison: None 3 view right ankle demonstrates nondisplaced trimalleolar fracture with soft tissue swelling. Elsewhere osteopenia, small posterior/plantar heel spurs, and scattered vascular calcifications.
--- NOTE | 2025-04-17 16:50 | XRAY ---
Indication: Fall injury. Comparison: None 3 nonweightbearing views right foot demonstrates osteopenia, mild 1st MTP/midfoot degenerative changes, small heel spurs, small cuboid accessory ossicle, and scattered vascular calcifications. No other bony, articular, or soft tissue abnormalities. Ankle reported separately.
[2025-04-17] MEDS ORDERED: Zofran 4 MG/2 ML VIAL ONE (18:16)
[2025-04-17] MEDS ORDERED: MORPHINE SULFATE 2 MG INJ ONE (18:20)
[2025-04-17] MEDS: Zofran 4 MG/2 ML VIAL IV ONE (18:25)
[2025-04-17 18:26] LABS: BASOPHIL % 0.9 % (0.2-1.2); Basophil (Absolute #) 0.06 x10^3/uL (0.01-0.08); Eosinophil (Absolute #) 0.22 x10^3/uL (0.04-0.54); Hematocrit 35.9 % (40.1-51.0); Hemoglobin 11.3 g/dL (13.7-17.5); IMMATURE GRAN # 0.02 x10^3u/L (0.001-0.031); IMMATURE GRAN % 0.3 % (0.001-0.429); Lymphocyte (Absolute #) 1.15 x10^3/uL (1.32-3.57); Mean Corpuscular Hemoglobin 30.2 pg (25.7-32.2); Mean Corpuscular Hgb Concent. 31.5 g/dL (32.3-36.5); Monocyte (Absolute #) 0.51 x10^3/uL (0.30-0.82); NUCLEATED RBC # 0.00 x10^3u/L (0.00-0.012); NUCLEATED RBC % 0.0 % (0.00-0.2); Platelet Count 217 x10^3/uL (163-337); Red Blood Count 3.74 x10^6/uL (4.63-6.08); White Blood Count 6.8 x10^3/uL (4.23-9.07)
[2025-04-17] MEDS: MORPHINE SULFATE 2 MG INJ IV ONE (18:26)
[2025-04-17 18:42] LABS: INR 0.92 (0.8-3.0); PROTIME 10.1 SECONDS (9.4-12.5)
[2025-04-17 19:11] LABS: Calcium 8.7 mg/dL (8.4-10.2); Carbon Dioxide 20.0 mmol/L (22-30); Creatinine 1 2.67 mg/dL (0.66-1.25); EST GLOMERULAR FILTRATION RATE 25.4 ML/MIN; Glucose 153.0 mg/dL (74-106); Potassium 3.8 mmol/L (3.5-5.1); SGOT/AST 35.0 U/L (17-59); SGPT/ALT 24.0 U/L (0-50); Total Protein 6.8 g/dL (6.3-8.2)
[2025-04-17] MEDS ORDERED: APRESOLINE 20 MG/ML INJ ONE (20:19)
[2025-04-17] MEDS: APRESOLINE 20 MG/ML INJ IV ONE (20:19)
[2025-04-17] MEDS ORDERED: APRESOLINE 20 MG/ML INJ IV PRN (20:22)
[2025-04-17] MEDS ORDERED: HUMULIN R SQ PRN (20:22)
[2025-04-17] MEDS ORDERED: MORPHINE SULFATE 2 MG INJ IV PRN (20:22)
[2025-04-17] MEDS ORDERED: NORCO 5/325 MG PO PRN (20:56)
[2025-04-17] MEDS: NORCO 7.5/325 MG TAB PO PRN (23:47)
[2025-04-18 05:31] LABS: BASOPHIL % 1.2 % (0.2-1.2); Basophil (Absolute #) 0.05 x10^3/uL (0.01-0.08); Eosinophil (Absolute #) 0.17 x10^3/uL (0.04-0.54); Hematocrit 31.8 % (40.1-51.0); Hemoglobin 9.5 g/dL (13.7-17.5); IMMATURE GRAN # 0.01 x10^3u/L (0.001-0.031); IMMATURE GRAN % 0.2 % (0.001-0.429); Lymphocyte (Absolute #) 1.35 x10^3/uL (1.32-3.57); Mean Corpuscular Hemoglobin 29.2 pg (25.7-32.2); Mean Corpuscular Hgb Concent. 29.9 g/dL (32.3-36.5); Monocyte (Absolute #) 0.45 x10^3/uL (0.30-0.82); NUCLEATED RBC # 0.00 x10^3u/L (0.00-0.012); NUCLEATED RBC % 0.0 % (0.00-0.2); Platelet Count 168 x10^3/uL (163-337); Red Blood Count 3.25 x10^6/uL (4.63-6.08); White Blood Count 4.3 x10^3/uL (4.23-9.07)
[2025-04-18 06:13] LABS: Calcium 8.1 mg/dL (8.4-10.2); Carbon Dioxide 19.0 mmol/L (22-30); Creatinine 1 2.61 mg/dL (0.66-1.25); EST GLOMERULAR FILTRATION RATE 26.1 ML/MIN; Glucose 150.0 mg/dL (74-106); Potassium 3.6 mmol/L (3.5-5.1); SGOT/AST 26.0 U/L (17-59); SGPT/ALT 19.0 U/L (0-50); Total Protein 5.9 g/dL (6.3-8.2)
[2025-04-18 07:42] VITALS: RESP 16
--- NOTE | 2025-04-18 10:50 | PCM.NOTE ---
Date and Time: 04/18/25 1049 Subjective Assessment: Mr. Casillas is a 69-year-old male with a significant past medical history of congestive heart failure, hyperlipidemia, peripheral neuropathy, hypertension, chronic kidney disease, diabetes mellitus, and hypothyroidism. He presented on 04/17/25 after sustaining a fall from a step, resulting in a right trimalleolar ankle fracture. Podiatry, under the care of Dr. Canseco, is following and has recommended surgical intervention today. The patient has been placed in a posterior splint with strict [id number] status to the right lower extremity. He continues to report pain rated at 7/10. Of note, his renal function is chronically impaired with a baseline creatinine of approximately 2.2 mg/dL, and current creatinine has increased to 2.61 mg/dL. He is receiving gentle IV hydration to support renal function. - Review of Systems Constitutional: No Symptoms Eyes: No Symptoms Ears, Nose, & Throat: No Symptoms Respiratory: No Symptoms Cardiac: No Symptoms Abdominal/Gastrointestinal: No Symptoms Genitourinary Symptoms: No Symptoms Musculoskeletal: Joint Pain (right ankle), Joint Swelling (right ankle) Skin: No Symptoms Neurological: No Symptoms Psychological: No Symptoms Endocrine: No Symptoms Hematologic/Lymphatic: No Symptoms Immunological/Allergic: No Symptoms Objective Exam General Appearance: no apparent distress Neurologic Exam: alert, oriented x 3, cooperative Skin Exam: normal color Eye Exam: PERRL Ears, Nose, Throat Exam: normal ENT inspection Neck Exam: normal inspection Respiratory Exam: normal breath sounds, lungs clear Cardiovascular Exam: regular rate/rhythm, normal heart sounds Gastrointestinal/Abdomen Exam: soft, normal bowel sounds Extremity Exam: swelling (right ankle), other (RUE with skin tear- covered in dressing Right knee with skin tear) Back Exam: normal inspection Male Genitalia Exam: deferred Rectal Exam: deferred Objective Data Vital Signs: Vital Signs - 24 hr Temp Pulse Resp BP BP Pulse Ox 04/18/25 07:40 98 F 77 16 127/60 93 L 04/18/25 04:00 97.8 F 75 18 129/62 92 L 04/18/25 00:00 97.8 F 82 18 149/69 95 04/17/25 23:02 97.9 F 79 18 159/70 94 L 04/17/25 20:00 78 19 190/84 95 04/17/25 19:30 172/90 95 04/17/25 19:00 78 154/82 95 04/17/25 18:30 75 175/76 96 04/17/25 18:06 78 18 169/81 96 04/17/25 18:05 96 04/17/25 17:00 74 20 176/99 04/17/25 16:54 94 L 04/17/25 16:30 77 18 161/89 94 L 04/17/25 16:00 76 18 147/69 95 04/17/25 15:31 78 18 134/111 95 04/17/25 15:00 82 141/69 04/17/25 14:38 80 147/78 95 04/17/25 14:36 98.3 F 84 18 147/78 94 L Pain Assessment - Last Documented Pain Intensity 4 Pain Scale Used 0-10 Pain Scale Intake and Output: Intake & Output 04/15/25 04/16/25 04/17/25 04/18/25 11:59 11:59 11:59 11:59 Intake Total 369 Output Total 400 Balance -31 Weight 105.1 kg Lab Results: Lab Results-Last 24 Hours 04/17/25 04/17/25 04/17/25 Range/Units 18:10 18:10 18:10 WBC 6.8 (4.23-9.07) x10^3/uL RBC 3.74 L (4.63-6.08) x10^6/uL Hgb 11.3 L (13.7-17.5) g/dL Hct 35.9 L (40.1-51.0) % MCV 96.0 H (79.0-92.2) fL MCH 30.2 (25.7-32.2) pg MCHC 31.5 L (32.3-36.5) g/dL RDW 13.9 (11.6-14.4) % Plt Count 217 (163-337) x10^3/uL MPV 11.0 (9.4-12.4) fL Gran % 71.3 H (34.0-67.9) % Immature Gran % (Auto) 0.3 (0.001-0.429) % Nucleat RBC Rel Count 0.0 (0.00-0.2) % Eos # (Auto) 0.22 (0.04-0.54) x10^3/uL Immature Gran # (Auto) 0.02 (0.001-0.031) x10^3u/L Absolute Lymphs (auto) 1.15 L (1.32-3.57) x10^3/uL Absolute Monos (auto) 0.51 (0.30-0.82) x10^3/uL Absolute Nucleated RBC 0.00 (0.00-0.012) x10^3u/L Lymphocytes % 16.8 L (21.8-53.1) % Monocytes % 7.5 (5.3-12.2) % Eosinophils % 3.2 (0.8-7.0) % Basophils % 0.9 (0.2-1.2) % Absolute Granulocytes 4.87 (1.78-5.38) x10^3/uL Basophils # 0.06 (0.01-0.08) x10^3/uL PT 10.1 (9.4-12.5) SECONDS INR 0.92 (0.8-3.0) Sodium 143 (135-145) mmol/L Potassium 3.8 (3.5-5.1) mmol/L Chloride 113 H (98-107) mmol/L Carbon Dioxide 20 L (22-30) mmol/L Anion Gap 14.3 (5-15) MEQ/L BUN 58 H (9-20) mg/dL Creatinine 2.67 H (0.66-1.25) mg/dL Estimated GFR 25.4 ML/MIN Glucose 153 H (74-106) mg/dL Calcium 8.7 (8.4-10.2) mg/dL Total Bilirubin 0.50 (0.2-1.3) mg/dL AST 35 (17-59) U/L ALT 24 (0-50) U/L Alkaline Phosphatase 98 (38-126) U/L Serum Total Protein 6.8 (6.3-8.2) g/dL Albumin 3.8 (3.5-5.0) g/dL Prealbumin (17.6-36.0) mg/dL 04/18/25 04/18/25 Range/Units 04:26 04:26 WBC 4.3 (4.23-9.07) x10^3/uL RBC 3.25 L (4.63-6.08) x10^6/uL Hgb 9.5 L (13.7-17.5) g/dL Hct 31.8 L (40.1-51.0) % MCV 97.8 H (79.0-92.2) fL MCH 29.2 (25.7-32.2) pg MCHC 29.9 L (32.3-36.5) g/dL RDW 13.9 (11.6-14.4) % Plt Count 168 (163-337) x10^3/uL MPV 11.1 (9.4-12.4) fL Gran % 52.6 (34.0-67.9) % Immature Gran % (Auto) 0.2 (0.001-0.429) % Nucleat RBC Rel Count 0.0 (0.00-0.2) % Eos # (Auto) 0.17 (0.04-0.54) x10^3/uL Immature Gran # (Auto) 0.01 (0.001-0.031) x10^3u/L Absolute Lymphs (auto) 1.35 (1.32-3.57) x10^3/uL Absolute Monos (auto) 0.45 (0.30-0.82) x10^3/uL Absolute Nucleated RBC 0.00 (0.00-0.012) x10^3u/L Lymphocytes % 31.5 (21.8-53.1) % Monocytes % 10.5 (5.3-12.2) % Eosinophils % 4.0 (0.8-7.0) % Basophils % 1.2 (0.2-1.2) % Absolute Granulocytes 2.25 (1.78-5.38) x10^3/uL Basophils # 0.05 (0.01-0.08) x10^3/uL PT (9.4-12.5) SECONDS INR (0.8-3.0) Sodium 145 (135-145) mmol/L Potassium 3.6 (3.5-5.1) mmol/L Chloride 116 H (98-107) mmol/L Carbon Dioxide 19 L (22-30) mmol/L Anion Gap 13.3 (5-15) MEQ/L BUN 59 H (9-20) mg/dL Creatinine 2.61 H (0.66-1.25) mg/dL Estimated GFR 26.1 ML/MIN Glucose 150 H (74-106) mg/dL Calcium 8.1 L (8.4-10.2) mg/dL Total Bilirubin 0.50 (0.2-1.3) mg/dL AST 26 (17-59) U/L ALT 19 (0-50) U/L Alkaline Phosphatase 85 (38-126) U/L Serum Total Protein 5.9 L (6.3-8.2) g/dL Albumin 3.2 L (3.5-5.0) g/dL Prealbumin 18.54 (17.6-36.0) mg/dL Radiology Exams: Radiology Procedures Category Date Time Status ANKLE (3 VIEWS) Stat Exams 04/17/25 15:14 Completed FOOT (MINIMUM 3 VIEWS) Stat Exams 04/17/25 15:14 Completed Medications: Medications Generic Name Dose Route Start Last Admin Trade Name Freq PRN Reason Stop Dose Admin Acetaminophen 650 mg 04/17/25 20:22 Acetaminophen 325 Mg Tablet PO 05/17/25 20:21 Q4H PRN PRN PAIN, FEVER, HEADACHE Hydrocodone Bitart/Acetaminophen 1 tab 04/17/25 23:39 04/18/25 06:00 Hydrocodone /Apap 7.5/325 Mg 1 Each Tablet PO 04/22/25 23:38 1 tab Q6H PRN PRN Administration PAIN Hydralazine HCl 10 mg 04/17/25 20:22 Hydralazine Hcl 20 Mg/Ml Vial IV 05/17/25 20:21 Q4H/PRN PRN HYPERTENSION Sodium Chloride 1,000 mls @ 50 mls/hr 04/17/25 20:22 04/17/25 23:48 Sodium Chloride 0.9% 1000 Ml IV 05/17/25 20:21 Not Given .Q20H MANUELITO Insulin Human Regular 0 unit 04/17/25 20:22 Insulin Regular, Human 1 Unit SQ 05/17/25 20:21 UD PRN HYPERGLYCEMIA Morphine Sulfate 2 mg 04/17/25 20:22 Morphine Sulfate 2 Mg/Ml Inj IV 04/22/25 20:21 Q4H PRN PRN SEVERE PAIN Discontinued Medications Generic Name Dose Route Start Last Admin Trade Name Freq PRN Reason Stop Dose Admin Hydrocodone Bitart/Acetaminophen 1 tab 04/17/25 20:56 Hydrocodone/Apap 5/325 1 Tab Tablet PO 04/22/25 20:55 Q4H PRN PRN PAIN Hydralazine HCl 10 mg 04/17/25 20:16 04/17/25 20:19 Hydralazine Hcl 20 Mg/Ml Vial IV 04/17/25 20:17 10 mg STAT ONE Administration Hydralazine HCl Confirm 04/17/25 20:19 Hydralazine Hcl 20 Mg/Ml Vial Administered 04/17/25 20:20 Dose 20 mg .ROUTE .STK-MED ONE Sodium Chloride 1,000 mls @ 50 mls/hr 04/17/25 17:45 04/17/25 18:23 Sodium Chloride 0.9% 1000 Ml IV 05/17/25 17:44 50 mls/hr .Q20H MANUELITO Administration Sodium Chloride Confirm 04/17/25 18:17 Sodium Chloride 0.9% 1000 Ml Administered 04/17/25 18:18 Dose 1,000 mls @ ud .ROUTE .STK-MED ONE Morphine Sulfate 2 mg 04/17/25 17:40 04/17/25 18:26 Morphine Sulfate 2 Mg/Ml Inj IV 04/17/25 17:41 2 mg STAT ONE Administration Morphine Sulfate Confirm 04/17/25 18:20 Morphine Sulfate 2 Mg/Ml Inj Administered 04/17/25 18:21 Dose 2 mg .ROUTE .STK-MED ONE Ondansetron HCl 4 mg 04/17/25 17:40 04/17/25 18:25 Ondansetron Hcl 4 Mg/2 Ml Vial IV 04/17/25 17:41 4 mg STAT ONE Administration Ondansetron HCl Confirm 04/17/25 18:16 Ondansetron Hcl 4 Mg/2 Ml Vial Administered 04/17/25 18:17 Dose 4 mg .ROUTE .STK-MED ONE Assessment/Plan (1) Trimalleolar fracture of ankle, closed Current Visit: Yes Status: Acute Assessment & Plan: -Discussed case with podiatry, agree with plan for surgical intervention- -PT eval - patient may need rehab -Plan for operative fixation by podiatry today. -Maintain posterior splint and strict [id number] on the right lower extremity. -Pain management with multimodal approach, monitoring renal dosing of analgesics given CKD. -Post-op DVT prophylaxis per podiatry; mechanical prophylaxis until cleared for chemical anticoagulation. -Encourage pulmonary hygiene and early mobilization of unaffected extremities to prevent complications. Code(s): S82.853A - DISPLACED TRIMALLEOLAR FRACTURE OF UNSP LOWER LEG, INIT (2) CKD (chronic kidney disease) stage 3, GFR 30-59 ml/min Current Visit: Yes Status: Acute Assessment & Plan: -baseline creatinine 2.2, now 2.61 -trend -Monitor renal function and electrolytes closely perioperatively. -Continue gentle IV hydration to prevent further renal insult, balancing against risk of CHF exacerbation. -Avoid nephrotoxic agents, contrast exposure, and adjust all renally cleared medications. -Monitor for fluid overload given CHF history. Code(s): N18.30 - CHRONIC KIDNEY DISEASE, STAGE 3 UNSPECIFIED (3) HTN (hypertension) Current Visit: Yes Status: Acute Assessment & Plan: -stable continue home meds Code(s): I10 - ESSENTIAL (PRIMARY) HYPERTENSION (4) Diabetes mellitus Current Visit: Yes Status: Acute Assessment & Plan: -NPO for now pre-surgery- post surgery ADA diet -SSI -check A1c Code(s): E11.9 - TYPE 2 DIABETES MELLITUS WITHOUT COMPLICATIONS (5) Hypothyroid Current Visit: Yes Status: Acute Assessment & Plan: -continue home meds Code(s): E03.9 - HYPOTHYROIDISM, UNSPECIFIED (6) HLD (hyperlipidemia) Current Visit: Yes Status: Acute Assessment & Plan: -continue statin Code(s): E78.5 - HYPERLIPIDEMIA, UNSPECIFIED (7) Peripheral neuropathy Current Visit: Yes Status: Acute Assessment & Plan: -noted, continue home regimen Code(s): G62.9 - POLYNEUROPATHY, UNSPECIFIED (8) CHF (congestive heart failure) Current Visit: No Status: Acute Assessment & Plan: -No recent echo on file - last one from 2012 with EF 60% -Continue home meds -Monitor fluid status closely, especially with perioperative fluids. -Daily weights, strict input/output documentatio -Telemetry monitoring perioperatively due to increased cardiac risk VTE: SCD for now- surgery to advised post op PPI: protonix Dispo: pending post op eval- may need rehab Code status: Full code Code(s): I50.9 - HEART FAILURE, UNSPECIFIED
[2025-04-18] MEDS ORDERED: Zofran 4 MG/2 ML VIAL IV PRN (11:10)
[2025-04-18] MEDS ORDERED: Docusate Sodium 100 MG PO PRN (11:10)
[2025-04-18] MEDS ORDERED: MEDICATION INTERVENTION MC SCH ×5 (11:45)
[2025-04-18] MEDS: Apresoline 25 MG TABLET PO SCH (14:07)
[2025-04-18] MEDS: CLARITIN 10 MG PO SCH (14:07)
[2025-04-18] MEDS: FOLATE 1 MG PO SCH (14:07)
[2025-04-18] MEDS: NORVASC 5 MG PO SCH (14:08)
[2025-04-18] MEDS: Protonix 40MG Tablet PO SCH (14:08)
[2025-04-18] MEDS: Requip 0.5 MG PO SCH (14:08)
[2025-04-18] MEDS: SYNTHROID 50 MCG PO SCH (14:08)
[2025-04-18] MEDS: THERAGRAN MULTIVITAMIN PO SCH (14:08)
[2025-04-18] MEDS: Zestril 5 MG PO SCH (14:09)
[2025-04-18] MEDS: Toprol Xl 50 MG PO SCH (14:09)
[2025-04-18] MEDS ORDERED: EXPAREL 133 MG/10 ML VIAL IJ ONE (14:37)
[2025-04-18] MEDS ORDERED: Marcaine Mpf 0.5% Vial 30 Ml ONE (14:37)
[2025-04-18] MEDS ORDERED: ROCURONIUM BROMIDE IV ONE (14:39)
[2025-04-18] MEDS ORDERED: Versed 2 MG/2 ML Injection ONE (14:40)
[2025-04-18] MEDS ORDERED: propofoL IV ONE (14:40)
[2025-04-18] MEDS ORDERED: SUBLIMAZE 100 MCG/2 ML ONE (14:40)
[2025-04-18] MEDS ORDERED: Xylocaine-Mpf 2% 5 Ml Vial ONE (14:45)
[2025-04-18] MEDS ORDERED: KEFZOL 1 GM ONE (15:25)
[2025-04-18] MEDS ORDERED: BRIDION 200MG/2ML IV ONE (16:26)
--- NOTE | 2025-04-18 19:33 | XRAY ---
Indication: Right ankle ORIF with syndesmosis reduction. Intraoperative fluoroscopy provided for 2 minute 49 seconds. 15 digital spot image submitted for interpretation demonstrates lateral fixation plate and multiple transverse screws fixating lateral malleolus fracture. 2 screws fixates medial malleolus fracture. Both fracture apposition/alignment near-anatomic. Correlate with degenerative findings as report.
[2025-04-18] MEDS: TYLENOL 325 MG PO PRN (19:39)
[2025-04-18] MEDS ORDERED: Hydromorphone 1 mg/ml Injection IV PRN (20:13)
[2025-04-18] MEDS ORDERED: Levofloxacin 500 MG Tablet ONE (22:49)
[2025-04-18] MEDS ORDERED: HUMALOG ONE (22:50)
[2025-04-18] MEDS ORDERED: PERCOCET TABLET 5/325MG ONE (22:51)
[2025-04-18] MEDS ORDERED: Toprol Xl 50 MG PO ONE (22:51)
[2025-04-18] MEDS ORDERED: ZOCOR 20MG ONE (22:52)
[2025-04-18] MEDS ORDERED: Lantus Insulin ONE (22:52)
[2025-04-18] MEDS: Lantus Insulin SQ SCH (22:55)
[2025-04-18] MEDS: HUMALOG SQ PRN (22:55)
[2025-04-18] MEDS: ZOCOR 20MG PO SCH (22:56)
[2025-04-18] MEDS: PERCOCET TABLET 5/325MG PO PRN (22:56)
[2025-04-18] MEDS: Levofloxacin 500 MG Tablet PO SCH (22:58)
--- NOTE | 2025-04-19 05:10 | PCM.NOTE ---
Date and Time: 04/19/25 0510 Subjective Assessment: Mr. Casillas is a 69-year-old male with a significant past medical history of congestive heart failure, hyperlipidemia, peripheral neuropathy, hypertension, chronic kidney disease, diabetes mellitus, and hypothyroidism. He presented on 04/17/25 after sustaining a fall from a step, resulting in a right trimalleolar ankle fracture. Podiatry, under the care of Dr. Canseco, is following and has recommended surgical intervention today. The patient has been placed in a posterior splint with strict [id number] status to the right lower extremity. He continues to report pain rated at 7/10. Of note, his renal function is chronically impaired with a baseline creatinine of approximately 2.2 mg/dL, and current creatinine has increased to 2.61 mg/dL. He is receiving gentle IV hydration to support renal function. 04/19/25: Met with patient bedside. PODS#1 right ankle repair. Patient reports minimal pain rating at 2/10 on numerical pain scale. No other complaints. Plan for CM to look into a rehab stay pending insurance approval. - Review of Systems Constitutional: Weakness Eyes: No Symptoms Ears, Nose, & Throat: No Symptoms Respiratory: No Symptoms Cardiac: No Symptoms Abdominal/Gastrointestinal: No Symptoms Genitourinary Symptoms: No Symptoms Musculoskeletal: Joint Pain (right ankle) Skin: Other (surgical site RLE with dressing CDI) Neurological: No Symptoms Psychological: No Symptoms Endocrine: No Symptoms Hematologic/Lymphatic: No Symptoms Immunological/Allergic: No Symptoms Objective Exam General Appearance: no apparent distress Neurologic Exam: alert, oriented x 3, cooperative Skin Exam: normal color, other (surgical dressing to Right foot/ankle CDI) Eye Exam: PERRL Ears, Nose, Throat Exam: normal ENT inspection Neck Exam: normal inspection Respiratory Exam: normal breath sounds, lungs clear Cardiovascular Exam: regular rate/rhythm, normal heart sounds Gastrointestinal/Abdomen Exam: soft, normal bowel sounds Extremity Exam: normal inspection Back Exam: normal inspection Male Genitalia Exam: deferred Rectal Exam: deferred Objective Data Vital Signs: Vital Signs - 24 hr Temp Pulse Resp BP Pulse Ox 04/19/25 03:57 98.6 F 84 16 172/79 96 04/19/25 00:04 98.5 F 89 16 163/74 95 04/18/25 20:40 92 H 154/72 93 L 04/18/25 19:40 97.8 F 94 H 175/80 90 L 04/18/25 18:40 90 187/85 91 L 04/18/25 18:10 94 H 164/83 92 L 04/18/25 17:40 81 16 182/82 90 L 04/18/25 17:25 83 16 191/86 91 L 04/18/25 14:31 98.4 F 82 16 177/78 93 L 04/18/25 11:28 98.3 F 80 16 191/71 90 L 04/18/25 07:40 98 F 77 16 127/60 93 L Pain Assessment - Last Documented Pain Intensity 3 Pain Scale Used 0-10 Pain Scale Intake and Output: Intake & Output 04/16/25 04/17/25 04/18/25 04/19/25 11:59 11:59 11:59 11:59 Intake Total 369 240 Output Total 1000 1000 Balance -631 -760 Weight 105.1 kg 105.1 kg Lab Results: Lab Results-Last 24 Hours 04/18/25 04/18/25 Range/Units 04:26 04:26 WBC 4.3 (4.23-9.07) x10^3/uL RBC 3.25 L (4.63-6.08) x10^6/uL Hgb 9.5 L (13.7-17.5) g/dL Hct 31.8 L (40.1-51.0) % MCV 97.8 H (79.0-92.2) fL MCH 29.2 (25.7-32.2) pg MCHC 29.9 L (32.3-36.5) g/dL RDW 13.9 (11.6-14.4) % Plt Count 168 (163-337) x10^3/uL MPV 11.1 (9.4-12.4) fL Gran % 52.6 (34.0-67.9) % Immature Gran % (Auto) 0.2 (0.001-0.429) % Nucleat RBC Rel Count 0.0 (0.00-0.2) % Eos # (Auto) 0.17 (0.04-0.54) x10^3/uL Immature Gran # (Auto) 0.01 (0.001-0.031) x10^3u/L Absolute Lymphs (auto) 1.35 (1.32-3.57) x10^3/uL Absolute Monos (auto) 0.45 (0.30-0.82) x10^3/uL Absolute Nucleated RBC 0.00 (0.00-0.012) x10^3u/L Lymphocytes % 31.5 (21.8-53.1) % Monocytes % 10.5 (5.3-12.2) % Eosinophils % 4.0 (0.8-7.0) % Basophils % 1.2 (0.2-1.2) % Absolute Granulocytes 2.25 (1.78-5.38) x10^3/uL Basophils # 0.05 (0.01-0.08) x10^3/uL Sodium 145 (135-145) mmol/L Potassium 3.6 (3.5-5.1) mmol/L Chloride 116 H (98-107) mmol/L Carbon Dioxide 19 L (22-30) mmol/L Anion Gap 13.3 (5-15) MEQ/L BUN 59 H (9-20) mg/dL Creatinine 2.61 H (0.66-1.25) mg/dL Estimated GFR 26.1 ML/MIN Glucose 150 H (74-106) mg/dL Calcium 8.1 L (8.4-10.2) mg/dL Total Bilirubin 0.50 (0.2-1.3) mg/dL AST 26 (17-59) U/L ALT 19 (0-50) U/L Alkaline Phosphatase 85 (38-126) U/L Serum Total Protein 5.9 L (6.3-8.2) g/dL Albumin 3.2 L (3.5-5.0) g/dL Prealbumin 18.54 (17.6-36.0) mg/dL Radiology Exams: Radiology Procedures Category Date Time Status ANKLE (3 VIEWS) Routine Exams 04/18/25 14:17 Completed ANKLE (3 VIEWS) Stat Exams 04/17/25 15:14 Completed FLUOROSCOPY UP TO 1 HR Routine Exams 04/18/25 14:18 Taken FOOT (MINIMUM 3 VIEWS) Stat Exams 04/17/25 15:14 Completed Medications: Medications Generic Name Dose Route Start Last Admin Trade Name Freq PRN Reason Stop Dose Admin Acetaminophen 650 mg 04/17/25 20:22 04/18/25 19:39 Acetaminophen 325 Mg Tablet PO 05/17/25 20:21 650 mg Q4H PRN PRN Administration PAIN, FEVER, HEADACHE Amlodipine Besylate 10 mg 04/18/25 12:00 04/18/25 14:08 Amlodipine Besylate 5 Mg Tablet PO 05/18/25 11:59 Not Given DAILY MANUELITO Docusate Sodium 100 mg 04/18/25 11:10 Docusate Sodium 100 Mg Capsule PO 05/18/25 11:09 BIDPRN PRN CONSTIPATION Folic Acid 1 mg 04/18/25 12:00 04/18/25 14:07 Folic Acid 1 Mg Tablet PO 05/18/25 11:59 Not Given DAILY MANUELITO Hydralazine HCl 50 mg 04/18/25 12:00 04/18/25 14:07 Hydralazine Hcl 25 Mg Tablet PO 05/18/25 11:59 Not Given DAILY MANUELITO Hydromorphone HCl 1 mg 04/18/25 20:13 Hydromorphone 1 Mg/1ml Inj IV 04/23/25 20:12 Q2H PRN PRN PAIN Sodium Chloride 1,000 mls @ 50 mls/hr 04/17/25 20:22 04/19/25 02:15 Sodium Chloride 0.9% 1000 Ml IV 05/17/25 20:21 50 mls/hr .Q20H MANUELITO Administration Insulin Glargine 45 unit 04/18/25 22:00 04/18/25 22:55 Insulin Glargine 1 Unit SQ 05/18/25 21:59 45 unit HS MANUELITO Administration Insulin Human Lispro 0 unit 04/18/25 11:10 04/18/25 22:55 Insulin Lispro 1 Unit SQ 05/18/25 11:09 2 unit UD PRN Administration HYPERGLYCEMIA Levofloxacin 500 mg 04/18/25 22:00 04/18/25 22:58 Levofloxacin 500 Mg Tablet PO 04/28/25 21:59 500 mg DAILY MANUELITO Administration Levothyroxine Sodium 50 mcg 04/18/25 12:00 04/18/25 14:08 Levothyroxine Sodium 50 Mcg Tablet PO 05/18/25 11:59 Not Given DAILY MANUELITO Lisinopril 5 mg 04/18/25 12:00 04/18/25 14:09 Lisinopril 5 Mg Tablet PO 05/18/25 11:59 Not Given DAILY MANUELITO Loratadine 10 mg 04/18/25 12:00 04/18/25 14:07 Loratadine 10 Mg Tablet PO 05/18/25 11:59 Not Given DAILY MANUELITO Metoprolol Succinate 150 mg 04/18/25 12:00 04/18/25 22:57 Metoprolol Succinate 50 Mg Tablet.Sa PO 05/18/25 11:59 150 mg BID MANUELITO Administration Miscellaneous Information 1 each 04/18/25 11:45 Medication Intervention 1 Each Each 05/18/25 11:44 .RN TO CHECK MANUELITO Miscellaneous Information 1 each 04/18/25 11:45 Medication Intervention 1 Each Each 05/18/25 11:44 .RN TO CHECK MANUELITO Miscellaneous Information 1 each 04/18/25 11:45 Medication Intervention 1 Each Each 05/18/25 11:44 .RN TO CHECK MANUELITO Miscellaneous Information 1 each 04/18/25 11:45 Medication Intervention 1 Each Each 05/18/25 11:44 .RN TO CHECK MANUELITO Miscellaneous Information 1 each 04/18/25 11:45 Medication Intervention 1 Each Each 05/18/25 11:44 .RN TO CHECK MANUELITO Morphine Sulfate 2 mg 04/17/25 20:22 Morphine Sulfate 2 Mg/Ml Inj IV 04/22/25 20:21 Q4H PRN PRN SEVERE PAIN Multivitamins Therapeutic 1 tab 04/18/25 12:00 04/18/25 14:08 Multivitamins,Therapeutic 1 Tab Tab PO 05/18/25 11:59 Not Given DAILY MANUELITO Ondansetron HCl 4 mg 04/18/25 11:10 Ondansetron Hcl 4 Mg/2 Ml Vial IV 05/18/25 11:09 Q6H PRN PRN NAUSEA/VOMITING Oxycodone/Acetaminophen 1 tab 04/18/25 20:11 04/18/25 22:56 Oxycodone Hcl/Apap 5 Mg/325 Mg Tablet PO 04/23/25 20:10 1 tab Q6H PRN PRN Administration PAIN Pantoprazole Sodium 40 mg 04/18/25 12:00 04/18/25 14:08 Protonix (Pantoprazole) 40 Mg Tablet PO 05/18/25 11:59 Not Given DAILY MANUELITO Ropinirole HCl 1 mg 04/18/25 12:00 04/18/25 14:08 Ropinirole Hcl 0.5 Mg Tablet PO 05/18/25 11:59 Not Given DAILY MANUELITO Simvastatin 40 mg 04/18/25 22:00 04/18/25 22:56 Simvastatin 20 Mg Tablet PO 05/18/25 21:59 40 mg HS MANUELITO Administration Discontinued Medications Generic Name Dose Route Start Last Admin Trade Name Freq PRN Reason Stop Dose Admin Hydrocodone Bitart/Acetaminophen 1 tab 04/17/25 20:56 Hydrocodone/Apap 5/325 1 Tab Tablet PO 04/22/25 20:55 Q4H PRN PRN PAIN Hydrocodone Bitart/Acetaminophen 1 tab 04/17/25 23:39 04/18/25 12:54 Hydrocodone /Apap 7.5/325 Mg 1 Each Tablet PO 04/22/25 23:38 1 tab Q6H PRN PRN Administration PAIN Hydralazine HCl 10 mg 04/17/25 20:16 04/17/25 20:19 Hydralazine Hcl 20 Mg/Ml Vial IV 04/17/25 20:17 10 mg STAT ONE Administration Hydralazine HCl Confirm 04/17/25 20:19 Hydralazine Hcl 20 Mg/Ml Vial Administered 04/17/25 20:20 Dose 20 mg .ROUTE .STK-MED ONE Hydralazine HCl 10 mg 04/17/25 20:22 Hydralazine Hcl 20 Mg/Ml Vial IV 05/17/25 20:21 Q4H/PRN PRN HYPERTENSION Sodium Chloride 1,000 mls @ 50 mls/hr 04/17/25 17:45 04/17/25 18:23 Sodium Chloride 0.9% 1000 Ml IV 05/17/25 17:44 50 mls/hr .Q20H MANUELITO Administration Sodium Chloride Confirm 04/17/25 18:17 Sodium Chloride 0.9% 1000 Ml Administered 04/17/25 18:18 Dose 1,000 mls @ ud .ROUTE .STK-MED ONE Insulin Human Regular 0 unit 04/17/25 20:22 Insulin Regular, Human 1 Unit SQ 05/17/25 20:21 UD PRN HYPERGLYCEMIA Morphine Sulfate 2 mg 04/17/25 17:40 04/17/25 18:26 Morphine Sulfate 2 Mg/Ml Inj IV 04/17/25 17:41 2 mg STAT ONE Administration Morphine Sulfate Confirm 04/17/25 18:20 Morphine Sulfate 2 Mg/Ml Inj Administered 04/17/25 18:21 Dose 2 mg .ROUTE .STK-MED ONE Ondansetron HCl 4 mg 04/17/25 17:40 04/17/25 18:25 Ondansetron Hcl 4 Mg/2 Ml Vial IV 04/17/25 17:41 4 mg STAT ONE Administration Ondansetron HCl Confirm 04/17/25 18:16 Ondansetron Hcl 4 Mg/2 Ml Vial Administered 04/17/25 18:17 Dose 4 mg .ROUTE .STK-MED ONE Multi-Disciplinary Progress Notes: Multi-Disciplinary Progress Notes 04/18/25 14:45 Nutrition Note by Leana Foote THE PATIENT IS HEADED TO THE [facility] AT THIS TIME VIA BED WITH O[facility]R. STAFF. Initialized on 04/18/25 14:45 - END OF NOTE Assessment/Plan (1) Trimalleolar fracture of ankle, closed Current Visit: Yes Status: Acute Assessment & Plan: -Discussed case with podiatry, agree with plan for surgical intervention- -PT eval - patient may need rehab -Plan for operative fixation by podiatry today. -Maintain posterior splint and strict [id number] on the right lower extremity. -Pain management with multimodal approach, monitoring renal dosing of analgesics given CKD. -Post-op DVT prophylaxis per podiatry; mechanical prophylaxis until cleared for chemical anticoagulation. -Encourage pulmonary hygiene and early mobilization of unaffected extremities to prevent complications. 04/19: -Podiatry following- plan for possible rehab stay- CM working on this -IPPT until discharge -Continue pain control -Patient placed on levaquin per podiatry Code(s): S82.853A - DISPLACED TRIMALLEOLAR FRACTURE OF UNSP LOWER LEG, INIT (2) CKD (chronic kidney disease) stage 3, GFR 30-59 ml/min Current Visit: Yes Status: Acute Assessment & Plan: -baseline creatinine 2.2, now 2.61 -trend -Monitor renal function and electrolytes closely perioperatively. -Continue gentle IV hydration to prevent further renal insult, balancing against risk of CHF exacerbation. -Avoid nephrotoxic agents, contrast exposure, and adjust all renally cleared medications. -Monitor for fluid overload given CHF history. 04/19: -Creat level appears to be at baseline 2.19 -monitor renal/lytes daily -DC IVF Code(s): N18.30 - CHRONIC KIDNEY DISEASE, STAGE 3 UNSPECIFIED (3) HTN (hypertension) Current Visit: Yes Status: Acute Assessment & Plan: -stable continue home meds Code(s): I10 - ESSENTIAL (PRIMARY) HYPERTENSION (4) Diabetes mellitus Current Visit: Yes Status: Acute Assessment & Plan: -ADA diet -SSI/glargine -check A1c Code(s): E11.9 - TYPE 2 DIABETES MELLITUS WITHOUT COMPLICATIONS (5) Hypothyroid Current Visit: Yes Status: Acute Assessment & Plan: -continue home meds Code(s): E03.9 - HYPOTHYROIDISM, UNSPECIFIED (6) HLD (hyperlipidemia) Current Visit: Yes Status: Acute Assessment & Plan: -continue statin Code(s): E78.5 - HYPERLIPIDEMIA, UNSPECIFIED (7) Peripheral neuropathy Current Visit: Yes Status: Acute Assessment & Plan: -noted, continue home regimen Code(s): G62.9 - POLYNEUROPATHY, UNSPECIFIED (8) CHF (congestive heart failure) Current Visit: No Status: Acute Assessment & Plan: -No recent echo on file - last one from 2012 with EF 60% -Continue home meds -Monitor fluid status closely, especially with perioperative fluids. -Daily weights, strict input/output documentatio -Telemetry monitoring perioperatively due to increased cardiac risk VTE: SCD for now- surgery to advised post op PPI: protonix Dispo: pending post op eval- may need rehab Code status: Full code Code(s): S82.853A - DISPLACED TRIMALLEOLAR FRACTURE OF UNSP LOWER LEG, INIT (2) CKD (chronic kidney disease) stage 3, GFR 30-59 ml/min Current Visit: Yes Status: Acute Code(s): N18.30 - CHRONIC KIDNEY DISEASE, STAGE 3 UNSPECIFIED (3) HTN (hypertension) Current Visit: Yes Status: Acute Code(s): I10 - ESSENTIAL (PRIMARY) HYPERTENSION (4) Diabetes mellitus Current Visit: Yes Status: Acute Code(s): E11.9 - TYPE 2 DIABETES MELLITUS WITHOUT COMPLICATIONS (5) Hypothyroid Current Visit: Yes Status: Acute Code(s): E03.9 - HYPOTHYROIDISM, UNSPECIFIED (6) HLD (hyperlipidemia) Current Visit: Yes Status: Acute Code(s): E78.5 - HYPERLIPIDEMIA, UNSPECIFIED (7) Peripheral neuropathy Current Visit: Yes Status: Acute Code(s): G62.9 - POLYNEUROPATHY, UNSPECIFIED (8) CHF (congestive heart failure) Current Visit: No Status: Acute Code(s): I50.9 - HEART FAILURE, UNSPECIFIED
[2025-04-19] MEDS ORDERED: PERCOCET TABLET 5/325MG ONE (05:28)
[2025-04-19 05:55] LABS: Hematocrit 29.4 % (40.1-51.0); Hemoglobin 8.9 g/dL (13.7-17.5); Mean Corpuscular Hemoglobin 29.7 pg (25.7-32.2); Mean Corpuscular Hgb Concent. 30.3 g/dL (32.3-36.5); Platelet Count 143 x10^3/uL (163-337); Red Blood Count 3.00 x10^6/uL (4.63-6.08); White Blood Count 6.0 x10^3/uL (4.23-9.07)
[2025-04-19 06:19] LABS: Calcium 8.2 mg/dL (8.4-10.2); Carbon Dioxide 19.0 mmol/L (22-30); Creatinine 1 2.19 mg/dL (0.66-1.25); EST GLOMERULAR FILTRATION RATE 32.2 ML/MIN; Glucose 106.0 mg/dL (74-106); Potassium 3.7 mmol/L (3.5-5.1); SGOT/AST 23.0 U/L (17-59); SGPT/ALT 14.0 U/L (0-50); Total Protein 5.9 g/dL (6.3-8.2)
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
[2025-04-19] MEDS ORDERED: PERCOCET TABLET 5/325MG PO PRN (08:39)
[2025-04-19] MEDS ORDERED: UBIDECARENONE 100 MG PO SCH (10:00)
[2025-04-19] MEDS ORDERED: NON-FORMULARY ITEM (Cholecalciferol (Vitamin D3) [Vitamin D3] 1,250 MCG Capsule) PO SCH (10:00)
[2025-04-19] MEDS ORDERED: COLCHICINE 0.6 MG PO SCH (10:00)
[2025-04-19] MEDS ORDERED: LEFLUNOMIDE 10 MG PO SCH (10:00)
[2025-04-19] MEDS ORDERED: FEBUXOSTAT 40 MG PO SCH (10:00)
[2025-04-19 11:39] VITALS: BP 150/67; PULSE 85; TEMP 98.4; O2SAT 98
--- NOTE | 2025-04-19 12:44 | XRAY ---
CLINICAL HISTORY: [facility] PLACEMENT COMPARISON: No prior studies are available for comparison. TECHNIQUE: An X-ray image of the chest was obtained in the AP projection. FINDINGS: Pulmonary Parenchyma: There is an artifactual limitation in the bilateral upper zones. There is no evidence of consolidation, collapse, or focal opacities. No pulmonary nodules are identified. There is no evidence of pleural effusion or pleural thickening. Heart and Mediastinum: The heart size is mildly enlarged. There is no mediastinal widening or masses. No hilar or mediastinal lymphadenopathy is identified. Bony Thorax: The bony thorax appears intact, without fractures or deformities. Soft Tissues: The soft tissues overlying the chest wall are unremarkable. IMPRESSION: 1. No acute pulmonary abnormalities are identified. 2. The heart size is mildly enlarged. Electronically Signed by: Celestino Laughlin MD. (04/19/2025 12:43:19 EDT)
[2025-04-19] MEDS: ECOTRIN 81 MG PO SCH (13:13)
[2025-04-19] MEDS: Hydromorphone 1 mg/ml Injection IV PRN (13:14)
--- NOTE | 2025-04-19 13:38 | PCM.DS ---
Discharge Summary Date of Admission: 04/17/25 20:17 Date of Discharge: 04/19/25 Admitting Physician: NADIA KUHN MD Consults: Consults on Case 04/17/25 20:22 Consult Podiatry ROUTINE Primary Care Provider: MADHU BASS Allergies Allergies naproxen Allergy (Verified 10/04/23 13:46) Hospital Summary - Hospital Course Hospital Course: Mr. Casillas is a 69-year-old male with a history of congestive heart failure, hyperlipidemia, peripheral neuropathy, hypertension, chronic kidney disease, diabetes mellitus, and hypothyroidism who presented on 04/17/25 after a fall from a step resulting in a right trimalleolar ankle fracture. Podiatry, under the care of Dr. Canseco, evaluated the patient and recommended surgical intervention, which was performed on 04/18/25. He was initially stabilized in a posterior splint with strict ras-[id number]-[id number] to the right lower extremity. His postoperative course was uncomplicated, and by postoperative day one he reported minimal pain at 2/10 with good tolerance of immobilization. Of note, his renal function is chronically impaired, with a baseline creatinine of approximately 2.2 mg/dL. During this admission, creatinine increased to 2.61 mg/dL, likely due to perioperative stress and reduced intake; he was managed with cautious IV hydration to preserve renal function and now at baseline. Pain is now controlled with oral medications, and podiatry will manage ongoing dressing changes, wound checks, and pain regimen after discharge. The patient will require strict xuw-[id number]-[id number] of the right lower extremity and will be discharged to a senior living facility for rehabilitation and assistance with mobility. Aspirin 81 mg twice daily will be continued for six weeks for venous thromboembolism prophylaxis as directed by podiatry. Case management has arranged transfer to senior living, and follow-up with outpatient podiatry has been scheduled. The patient has been counseled on the importance of adherence to his chronic disease management and monitoring of his renal function in the setting of CKD and perioperative stress. I spent 35 minutes [id number] with the patient on the day of discharge performing discharge exam, discussing hospital stay and discharge instructions with patient and caregivers, preparation of discharge records, prescriptions & referral forms and addressing any questions/concerns the patient had as documented above. - Vitals & Intake/Output Vital Signs: Vital Signs Temperature 98.4 F 04/19/25 11:35 Pulse Rate 85 09/18/25 11:35 Respiratory Rate 16 04/19/25 11:35 Blood Pressure 150/67 04/19/25 11:35 O2 Sat by Pulse Oximetry 98 04/19/25 11:35 Intake & Output: Intake & Output 04/17/25 04/18/25 04/19/25 04/20/25 11:59 11:59 11:59 11:59 Intake Total 369 720 600 Output Total 1000 1200 Balance -631 -480 600 Weight 105.1 kg 111.9 kg - Lab Result Diagrams: 04/19/25 04:57 04/19/25 04:57 Lab Results-Last 24 Hrs: Lab Results-Last 24 Hours 04/19/25 04/19/25 04/19/25 Range/Units 04:57 04:57 04:57 WBC 6.0 (4.23-9.07) x10^3/uL RBC 3.00 L (4.63-6.08) x10^6/uL Hgb 8.9 L (13.7-17.5) g/dL Hct 29.4 L (40.1-51.0) % MCV 98.0 H (79.0-92.2) fL MCH 29.7 (25.7-32.2) pg MCHC 30.3 L (32.3-36.5) g/dL RDW 14.2 (11.6-14.4) % Plt Count 143 L (163-337) x10^3/uL MPV 11.3 (9.4-12.4) fL Sodium 144 (135-145) mmol/L Potassium 3.7 (3.5-5.1) mmol/L Chloride 118 H (98-107) mmol/L Carbon Dioxide 19 L (22-30) mmol/L Anion Gap 10.7 (5-15) MEQ/L BUN 45 H (9-20) mg/dL Creatinine 2.19 H (0.66-1.25) mg/dL Estimated GFR 32.2 ML/MIN Glucose 106 (74-106) mg/dL Hemoglobin A1c 5.25 (4.5-6.0) % Calcium 8.2 L (8.4-10.2) mg/dL Total Bilirubin 0.70 (0.2-1.3) mg/dL AST 23 (17-59) U/L ALT 14 (0-50) U/L Alkaline Phosphatase 74 (38-126) U/L Serum Total Protein 5.9 L (6.3-8.2) g/dL Albumin 3.0 L (3.5-5.0) g/dL Micro Results-Entire Visit: Accuchecks Date 04/19/25 Date 04/19/25 Date 04/19/25 Date 04/18/25 Date 04/18/25 Time 11:31 Time 07:32 Time 04:11 Time 21:00 Time 21:00 - Radiology Exams Ordered Rad Exams-Entire Visit: Radiology Procedures Category Date Time Status ANKLE (3 VIEWS) Routine Exams 04/18/25 14:17 Completed ANKLE (3 VIEWS) Stat Exams 04/17/25 15:14 Completed CHEST 1 VIEW (PORTABLE) Stat Exams 04/19/25 11:07 Completed FLUOROSCOPY UP TO 1 HR Routine Exams 04/18/25 14:18 Taken FOOT (MINIMUM 3 VIEWS) Stat Exams 04/17/25 15:14 Completed - Procedures and Test Procedures and Tests throughout Hospitalization: Therapy Orders & Screens 04/18/25 11:10 PT Eval & Treat (MD Order) ONCE Reason for Eval:: right ankle fracture assess for knee scooter Diagnosis: Trimalleolar fracture 04/18/25 12:38 EKG NOW Comment: PREOP Diagnosis: Trimalleolar fracture EKG Reason: Other 04/18/25 17:20 PT Eval & Treat (MD Order) ONCE Reason for Eval:: assess for knee scooter Diagnosis: Trimalleolar fracture Discharge Exam General Appearance: no apparent distress Neurologic Exam: alert, oriented x 3, cooperative Eye Exam: PERRL Ears, Nose, Throat Exam: normal ENT inspection Neck Exam: normal inspection Respiratory Exam: normal breath sounds, lungs clear Cardiovascular Exam: regular rate/rhythm, normal heart sounds Gastrointestinal/Abdomen Exam: soft, normal bowel sounds Male Genitalia Exam: deferred Rectal Exam: deferred Back Exam: normal inspection Skin Exam: other (Right ankle with surgical dressing CDI) Final Diagnosis/Problem List - Final Discharge Diagnosis/Problem (1) Trimalleolar fracture of ankle, closed Current Visit: Yes Status: Acute Assessment & Plan: Rjf-[id number] to right lower extremity Podiatry to follow outpatient for wound care, pain management, and dressing changes Aspirin 81 mg twice daily for six weeks for VTE prophylaxis [facility] facility placement for rehab and mobility assistance Code(s): S82.853A - DISPLACED TRIMALLEOLAR FRACTURE OF UNSP LOWER LEG, INIT (2) CKD (chronic kidney disease) stage 3, GFR 30-59 ml/min Current Visit: Yes Status: Acute Assessment & Plan: Managed with gentle IV hydration during admission at baseline Monitor renal function with periodic BMP Avoid nephrotoxic agents and unnecessary IV contrast Encourage adequate hydration as tolerated Code(s): N18.30 - CHRONIC KIDNEY DISEASE, STAGE 3 UNSPECIFIED (3) HTN (hypertension) Current Visit: Yes Status: Acute Assessment & Plan: Continue antihypertensive regimen Monitor BP during rehab stay Code(s): I10 - ESSENTIAL (PRIMARY) HYPERTENSION (4) Diabetes mellitus Current Visit: Yes Status: Acute Assessment & Plan: Continue home regimen Monitor glucose closely, especially in the perioperative and rehab setting Code(s): E11.9 - TYPE 2 DIABETES MELLITUS WITHOUT COMPLICATIONS (5) Hypothyroid Current Visit: Yes Status: Acute Assessment & Plan: Continue levothyroxine at current dose Code(s): E03.9 - HYPOTHYROIDISM, UNSPECIFIED (6) HLD (hyperlipidemia) Current Visit: Yes Status: Acute Assessment & Plan: Continue statin therapy Code(s): E78.5 - HYPERLIPIDEMIA, UNSPECIFIED (7) Peripheral neuropathy Current Visit: Yes Status: Acute Assessment & Plan: Reinforce foot care and inspection at senior living facility Continue home regimen Code(s): G62.9 - POLYNEUROPATHY, UNSPECIFIED (8) CHF (congestive heart failure) Current Visit: No Status: Acute Assessment & Plan: Continue home regimen Monitor for fluid overload during rehab stay Code(s): I50.9 - HEART FAILURE, UNSPECIFIED - Discharge Discharge Date: 04/19/25 Disposition: DC TO ANY "OTHER" USP Condition: Stable Prescriptions: New Aspirin EC 325 mg [Ecotrin 325 MG] 325 mg PO DAILY #30 Levofloxacin [Levofloxacin 250MG Tablet] 250 mg PO HS #9 tablet Continue Metoprolol Succinate [Toprol Xl] 150 mg PO BID Atorvastatin Calcium [Lipitor 20MG Tablet] 40 mg PO HS Levothyroxine Sodium 50 Mcg [Synthroid 50 Mcg] 50 mcg PO DAILY Insulin Aspart [Novolog] 25 unit SQ AC Fexofenadine HCl [Suha Allergy] 180 mg PO DAILY Amlodipine Besylate 10 mg PO DAILY Hydralazine HCl 50 mg PO DAILY Ropinirole HCl 1 mg PO DAILY Lisinopril 5 mg [Zestril 5 MG] 5 mg PO DAILY Folic Acid 1 mg [Folate 1 mg] 1 mg PO DAILY Insulin Glargine,Hum.rec.anlog [Basaglar Kwikpen U-100] 45 unit SQ HS Colchicine 0.6 mg PO DAILY Cholecalciferol (Vitamin D3) [Vitamin D3] 1,250 mcg PO DAILY Febuxostat [Uloric] 40 mg PO DAILY Leflunomide 20 mg PO DAILY Ubidecarenone [Coenzyme Q-10] 100 mg PO DAILY Semaglutide [Ozempic] 1 mg SQ WEEKLY Mulitvitamin With Iron ([id number]) 20 mg PO DAILY Discontinued Aspirin EC 81 mg [Ecotrin 81 mg] 81 mg PO DAILY Additional Instructions: USP ORDERS 1999 CATHY ADA DIET ACHS ACCU CHECKS PT/OT EVAL AND TREAT DRESSINGS TO STAY CLEAN DRY AND INTACT UNTIL FOLLOW UP NON WTBEARING RIGHT FOOT F/U WEDNESDAY IN OFFICE SCHEDULED SEE RX FOR LEVAQUIN AND ASPIRIN MONSERRAT'S OFFICE TO SEND IN RX FOR PAIN MED TO [facility] SEE ATTACHED MED LIST Follow up with: ALEXANDRE SERRA NP [Non-Physician Practitioner, UNKNOWN] - 04/24/25 9:00 am MADHU BASS MD [Primary Care Provider, [facility]] - 05/03/25 11:00 am
--- NOTE | 2025-04-19 18:23 | XRAY ---
Two minutes and 49 seconds of fluoroscopy was used in surgery for a right ankle ORIF with syndesmosis reduction.
[2025-04-19] MEDS ORDERED: Levofloxacin 250MG Tablet PO SCH (22:00)
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
== END 2025-04-19 15:00 ==
LOC: ED 14:34 → MED SURG 20:17
PROVIDERS: ADMIT Internal Medicine; ATTEND Internal Medicine
DX: S82.851A Displaced trimalleolar fracture of right lower leg, initial encounter for closed fracture (principal); E11.22 Type 2 diabetes mellitus with diabetic chronic kidney disease; I12.9 Hypertensive chronic kidney disease with stage 1 through stage 4 chronic kidney disease, or unspecified chronic kidney disease; N18.30 Chronic kidney disease, stage 3 unspecified; I50.9 Heart failure, unspecified; E78.5 Hyperlipidemia, unspecified; G62.9 Polyneuropathy, unspecified; R79.89 Other specified abnormal findings of blood chemistry; E11.42 Type 2 diabetes mellitus with diabetic polyneuropathy; E03.9 Hypothyroidism, unspecified; W19.XXXA Unspecified fall, initial encounter; Z79.899 Other long term (current) drug therapy; R26.89 Other abnormalities of gait and mobility; M25.571 Pain in right ankle and joints of right foot
CPT/HCPCS: 27822; 27829; 36415; 71045; 73610; 73630; 76000; 80053; 83036; 84134; 85025; 85027; 85610; 93005; 96374; 96375; 97161; 99285; C1713; G0378; Q3014